=== PATIENT | female | born 1935 | race Caucasian/White ===

== ENCOUNTER 2017-08-20 10:48 | Emergency (ER) | payer MEDICARE ==
[2017-08-20 11:22] VITALS: BP 168/100
--- NOTE | 2017-08-20 11:23 | UC ---
Head Injury HPI - HPI Summary HPI Summary: Pt presents with daughter for slurred speech. Pt states that she is fine and doesn't want to be here. Daughter - Terrie - says that for the last 5 days she has noticed pt's speech being slurred at times. She tells me that about a month ago pt fell down an embankment and hit her head and bruised most of her body, did not seek treatment and did not experience LOC. She has "healed" from the fall and reports no residual pain or bruising. In regards to her recent slurred speech, both pt and daughter deny a more recent injury. When questioning the patient, she does admit that her speech has been "slower" than normal and that she is finding it more difficult to think of the correct word to say. She also mentions that she has felt "unsteady" on her feet. Pt states that she is "allergic to doctors" and thus never goes for routine follow ups or seeks medical care. She denies recent illness, dizziness, headache, vision changes, numbness, tingling, SOB, chest pain, abdominal pain, N/V/D/C, general pain, dysuria, hematuria, or urinary frequency. - History Of Current Complaint Hx Obtained From: Patient, Family/Slots Manager Onset/Duration: Gradual Onset, Lasting Days <Tej Nichols - Last Filed: 08/20/17 17:21> <Sultana Andrews - Last Filed: 08/21/17 20:29> - History Of Current Complaint Chief Complaint: UCGeneralIllness Stated Complaint: SLURRED SPEECH - Allergies/Home Medications Allergies/Adverse Reactions: Allergies Allergy/AdvReac Type Severity Reaction Status Date / Time No Known Allergies Allergy Verified 08/20/17 10:57 Home Medications: Home Medications Aspirin TAB* [Aspirin 325 MG TAB*] 325 mg PO DAILY 08/20/17 [History Confirmed 08/20/17] Vitamin E CAP* 200 mg PO DAILY 08/20/17 [History Confirmed 08/20/17] PMH/Surg Hx/FS Hx/Imm Hx Previously Healthy: Yes Cardiovascular History: Hypertension - Surgical History Surgical History: Yes Surgery Procedure, Year, and Place: hysto, cyst removal from left grion - Social History Alcohol Use: None Substance Use Type: None Smoking Status (MU): Light Every Day Tobacco Smoker Type: Cigarettes <Tej Nichols - Last Filed: 08/20/17 17:21> Review of Systems Constitutional: Negative Skin: Negative Eyes: Negative ENT: Negative Respiratory: Negative Cardiovascular: Negative Gastrointestinal: Negative Genitourinary: Negative Motor: Negative Neurovascular: Negative Musculoskeletal: Negative Neurological: Weakness, Other - Slurred speech. Psychological: Negative All Other Systems Reviewed And Are Negative: Yes <Tej Nichols - Last Filed: 08/20/17 17:21> Physical Exam Triage Information Reviewed: Yes Appearance: Well-Appearing, No Pain Distress, Well-Nourished Vital Signs: Initial Vital Signs Temp 98.6 F 08/20/17 10:59 Pulse 91 08/20/17 10:59 Resp 18 08/20/17 10:59 BP 185/109 08/20/17 10:59 Pulse Ox 100 08/20/17 10:59 Vital Signs Reviewed: Yes Eyes: Positive: Conjunctiva Clear, Other: - EOMI. PERRLA. No nystagmus. Visual melton intact.. Negative: Conjunctiva Inflamed, Discharge ENT: Positive: Hearing grossly normal, Pharynx normal, TMs normal, Uvula midline. Negative: Pharyngeal erythema, Nasal congestion, Nasal drainage, TM bulging, TM dull, TM red, Tonsillar swelling, Tonsillar exudate, Sinus tenderness Neck: Positive: Supple, No Lymphadenopathy, Other: - FROM. NTTP. Respiratory: Positive: Chest non-tender, No respiratory distress, No accessory muscle use, Decreased breath sounds - Throughout Cardiovascular: Positive: RRR, No Murmur, Pulses Normal Abdomen Description: Positive: Nontender, No Organomegaly, Soft. Negative: CVA Tenderness (R), CVA Tenderness (L), Distended, Guarding Bowel Sounds: Positive: Present Musculoskeletal: Positive: Strength Intact, ROM Intact, No Edema Neurological: Positive: Alert, Muscle Tone Normal, Other: - A&Ox3. 3 word recall , remote, recent memory, ability to follow 2-step directions, and attention intact. CN II XII grossly intact. Motor: good muscle tone, strength 5/5 throughout. Rapid alternating movements & [id number] are intact. Sensory: sensations intact throughout. Reflexes: biceps, triceps, brachioradialis, knee, and ankle +2. Mildly slowed and slurred speech, but easily understood - daughter and pt both admit that this is not her baseline. No facial drooping. There is no motor drift in UEs or LEs.. Negative: Fatigued, Lethargic Psychological: Positive: Age Appropriate Behavior Skin: Negative: rashes <Tej Nichols - Last Filed: 08/20/17 17:21> Vital Signs: Initial Vital Signs Temp 98.6 F 08/20/17 10:59 Pulse 91 08/20/17 10:59 Resp 18 08/20/17 10:59 BP 185/109 08/20/17 10:59 Pulse Ox 100 08/20/17 10:59 <Sultana Andrews - Last Filed: 08/21/17 20:29> Diagnostics - EKG Cardiac Rate: NL Cardiac Rhythm: Sinus: Normal - 1102 Rate 87. No acute ST changes <Tej Nichols - Last Filed: 08/20/17 17:21> National Institutes Of Health - NIH Scale Level of Consciousness: Alert/Keenly Responsive Ask Patient the Month and His/Her Age: Both Correct Ask Pt to Open/Close Eyes and Associate Veterinarian/Release Non-Paretic Hand: Both Correctly Best Gaze (Only Horizontal Eye Movement): Normal Visual Field Testing: No Visual Loss Facial Paresis-Pt to Smile & Close Eyes or Grimace Symmetry: Normal/Symmetrical Motor Function - Right Arm: No Drift-Holds 10 Seconds Motor Function - Left Arm: No Drift-Holds 10 Seconds Motor Function - Right Leg: No Drift-Holds 10 Seconds Motor Function - Left Leg: No Drift-Holds 10 Seconds Limb Ataxia-Must be out of Proportion to Weakness Present: Absent Sensory (Use Pinprick to Test Arms/Legs/Trunk/Face): Normal Best Language (Describe Picture, Name Items): Some Loss Dysarthria (Read Several Words): Slurs Some Words Extinction and Inattention: No Abnormality Total Score: 2 <Tej Nichols - Last Filed: 08/20/17 17:21> Head Injury Course/Dx - Course Course Of Treatment: EKG - NSR no ST elevation or acute changes. Case discussed with Dr. Sultana Andrews. We both had a discussion with pt and daughter and advised them to seek a further workup in the ED regarding her slurred speech and fall. An ambulance was offered, but they declined and elected to go by private vehicle. The daughter will drive pt to [facility]. - Differential Dx/Diagnosis Differential Diagnosis/HQI/PQRI: Concussion Without LOC, Contusion, Hematoma, Intracranial Bleed, Skull Fracture, Other - CVA. TIA. Provider Diagnoses: Slurred Speech. Generalized weakness <Tej Nichols - Last Filed: 08/20/17 17:21> - Differential Dx/Diagnosis Differential Diagnosis/HQI/PQRI: Other <Sultana Andrews - Last Filed: 08/21/17 20:29> Discharge - Discharge Plan Discharge Disposition Comment: ED by private car - daughter driving <Tej Nichols - Last Filed: 08/20/17 17:21> <Sultana Andrews - Last Filed: 08/21/17 20:29> - Discharge Plan Condition: Stable Disposition: TRANS HIGHER LVL OF CARE FAC Referrals: No Primary Care Phys,NOPCP [Medical Doctor] - Additional Instructions: Provider that evaluated you today recommended that you go to the ED for further evaluation regarding your slurred speech and weakness. If you develop any changes or increased/worsening symptoms on the way - please call 911. Attestation Statement User Type: Provider <Sultana Andrews - Last Filed: 08/21/17 20:29>
--- NOTE | 2017-08-20 11:30 | UC ---
Progress - Progress Note Progress Note: Pt evaluated with AMIE Pt is an 82 yo female, extensive tobacco use. Progressive weight loss pt has not seen pcp in a long time. Pt with progressive balance difficulties x 1 -2months. Pt fell "down ravine" 1 month ago - did not seek medical care. Children noted last Thur pt with slurring of words. Pt notes her speech has been slower Children convinced her to come to ED today. Pt denies fever, chills no cp, sob, abd pain no n.v.d No stone, vision change I was present throughout AMIE exam REcommend pt go to ED - refusing EMS - okay for daughter to drive Pt with markedly elevated BP today. Pt states unusual for her differential included stroke, htn urgency, malignancy Daughter will drive pt agreement with plan Verbal report to Panchito Mars RN at ED - MD not available
== END 2017-08-20 11:38 | disposition short-term general hospital (02) ==
LOC: UCEAST 10:48
DX: R47.81 Slurred speech (principal); R53.1 Weakness; Z72.0 Tobacco use; Z91.81 History of falling; R63.4 Abnormal weight loss
CPT/HCPCS: 93005; 99202; G0463

== ENCOUNTER 2017-08-20 11:54 | Emergency (ER) | payer MEDICARE ==
[2017-08-20 13:15] LABS: Hematocrit 38 % (35-47); Hemoglobin 12.6 g/dl (12.0-16.0); Mean Corpuscular HGB Conc 33 g/dl (31-36); Mean Corpuscular Hemoglobin 29 pg (27-31); Mean Corpuscular Volume 87 fL (80-97); Mean Platelet Volume 9 um3 (7.4-10.4); Red Blood Count 4.38 10^6/ul (4.0-5.4); Red Cell Distribution Width 15 % (10.5-15); White Blood Count 8.6 10^3/ul (3.5-10.8)
[2017-08-20] MEDS ORDERED: Labetalol IV* 5 MG/ML 20 ML VIAL IV PUSH ONE (13:20)
[2017-08-20 13:32] LABS: Albumin 3.5 g/dL (3.2-5.2); Calcium 8.8 mg/dL (8.6-10.3); EGFR African American 42.8 (>60); EGFR Non-African American 33.2 (>60); Globulin 3.1 g/dL (2-4); Potassium 3.9 mmol/L (3.5-5.0); Total Bilirubin 0.5 mg/dL (0.2-1.0); Total Protein 6.6 g/dL (6.4-8.9); Troponin I 0.02 ng/mL (<0.04)
--- NOTE | 2017-08-20 14:15 | RAD ---
Indication: Stroke. CT of the brain was performed without IV contrast. Ventricular structures are midline. No midline shift is noted. The extraction spaces are unremarkable. There is no evidence of intracranial mass or hemorrhage. No other high or low density lesions are identified. Mastoid air cells and paranasal sinuses are otherwise unremarkable. IMPRESSION: No intracranial mass or hemorrhage is noted.
--- NOTE | 2017-08-20 14:40 | ED ---
Daniel Kim Benjamin, scribed for Nani Odonnell MD on 08/20/17 at 1319 . Altered Mental Status - HPI Summary HPI Summary: 82yo female brought into ED by her daughter who reports pt having high BP and mild dizziness. BP in room is 194/146. Per daughter, pt has been slurring speech since after having an argument with someone. Pt hasnt seen a doctor for 5 years. Pt herself does not have any complaints. Pt does not want to be here. - History Of Current Complaint Chief Complaint: EDHypertension Stated Complaint: SLURRED SPEECH/HIGH BP Time Seen by Provider: 08/20/17 13:01 Hx Obtained From: Patient, Family/Nocturnist - daughter Onset/Duration: Resolved Timing: Intermittent Severity Initially: Mild Severity Currently: None Aggravating Factor(s): Nothing Alleviating Factor(s): Nothing Associated Signs And Symptoms: Positive: Negative - Allergies/Home Medications Allergies/Adverse Reactions: Allergies Allergy/AdvReac Type Severity Reaction Status Date / Time No Known Allergies Allergy Verified 08/20/17 10:57 PMH/Surg Hx/FS Hx/Imm Hx Cardiovascular History: Reports: Hx Hypertension - Surgical History Surgery Procedure, Year, and Place: hysto, cyst removal from left grion Infectious Disease History: No Infectious Disease History: Denies: History Other Infectious Disease, Traveled Outside the [place] in Last 30 Days - Family History Known Family History: Positive: Hypertension - Social History Occupation: Retired Alcohol Use: None Substance Use Type: Reports: None Smoking Status (MU): Light Every Day Tobacco Smoker Type: Cigarettes Review of Systems Constitutional: Negative Eyes: Negative ENT: Negative Cardiovascular: Negative Respiratory: Negative Gastrointestinal: Negative Genitourinary: Negative Musculoskeletal: Negative Skin: Negative Neurological: Negative Psychological: Normal All Other Systems Reviewed And Are Negative: Yes Physical Exam - Summary Physical Exam Summary: VITAL SIGNS: Reviewed. GENERAL: Patient is a well-developed and nourished FEMALE who is lying comfortable in the stretcher. Patient is not in any acute respiratory distress. HEAD AND FACE: No signs of trauma. No ecchymosis, hematomas or skull depressions. No sinus tenderness. EYES: PERRLA, EOMI x 2, No injected conjunctiva, no nystagmus. EARS: Hearing grossly intact. Ear canals and tympanic membranes are within normal limits. MOUTH: Oropharynx within normal limits. NECK: Supple, trachea is midline, no adenopathy, no JVD, no carotid bruit, no c- spine tenderness, neck with full ROM. CHEST: Symmetric, no tenderness at palpation LUNGS: Clear to auscultation bilaterally. No wheezing or crackles. CVS: Regular rate and rhythm, S1 and S2 present, no murmurs or gallops appreciated. ABDOMEN: Soft, non-tender. No signs of distention. No rebound no guarding, and no masses palpated. Bowel sounds are normal. EXTREMITIES: FROM in all major joints, no edema, no cyanosis or clubbing. NEURO: Alert and oriented x 3. No acute neurological deficits. Speech is normal and follows commands. SKIN: Dry and warm Triage Information Reviewed: Yes Vital Signs On Initial Exam: Initial Vitals Temp Pulse Resp BP Pulse Ox 98.1 F 87 20 173/121 97 08/20/17 11:57 08/20/17 11:57 08/20/17 11:57 08/20/17 11:57 08/20/17 11:57 Vital Signs Reviewed: Yes - [place] Coma Scale Coma Scale Total: 15 Diagnostics - Vital Signs Vital Signs Temp Pulse Resp BP Pulse Ox 08/20/17 12:01 188/108 08/20/17 11:57 98.1 F 87 20 173/121 97 - Laboratory Result Diagrams: 08/20/17 13:06 08/20/17 13:06 Lab Statement: Any lab studies that have been ordered have been reviewed, and results considered in the medical decision making process. Re-Evaluation - Re-Evaluation First Eval Re-Evaluation Time: 14:36 Comment: Reviewed pt's CT, and lab results. Will discharge pt. Altered Mental Statu Course/Dx - Course Course Of Treatment: 82yo female brought into ED by her daughter who reports pt having high BP and mild dizziness. BP in room is 194/146. Per daughter, pt has been slurring speech since after having an argument with someone. Pt hasnt seen a doctor for 5 years. Pt herself does not have any complaints. Pt does not want to be here. Pt will be discharge with dx of HTN. Will rx norvasc. Advised pt to monitor her BP. - Diagnoses Discharge Diagnoses: Hypertension Discharge - Discharge Plan Condition: Stable Disposition: HOME Prescriptions: Amlodipine Besylate [Norvasc 5 mg tab] 5 mg PO DAILY #30 tab Patient Education Materials: Hypertension (ED) Referrals: Jessica BAGLEYPFina [Primary Care Provider] - Additional Instructions: Monitor your blood pressure at home. RETURN TO EMERGENCY DEPARTMENT FOR ANY NEW OR WORSENING SYMPTOMS The documentation as recorded by the Daniel coleman Benjamin accurately reflects the service I personally performed and the decisions made by me, Nani Odonnell MD.
[2017-08-20 14:43] VITALS: BP 137/80
== END 2017-08-20 14:48 | disposition home or self-care (01) ==
LOC: ED 11:54
DX: I10 Essential (primary) hypertension (principal); F17.210 Nicotine dependence, cigarettes, uncomplicated
CPT/HCPCS: 36415; 70450; 80053; 83605; 84484; 85025; 93005; 96374; 99282

== ENCOUNTER 2017-09-20 16:26 | Emergency (ER) | payer MEDICARE ==
[2017-09-20 19:00] LABS: Hematocrit 41 % (35-47); Hemoglobin 13.7 g/dl (12.0-16.0); Mean Corpuscular HGB Conc 34 g/dl (31-36); Mean Corpuscular Hemoglobin 29 pg (27-31); Mean Corpuscular Volume 86 fL (80-97); Mean Platelet Volume 8 um3 (7.4-10.4); Platelet Count 275 10^3/ul (150-450); Red Blood Count 4.73 10^6/ul (4.0-5.4); Red Cell Distribution Width 15 % (10.5-15); White Blood Count 9.1 10^3/ul (3.5-10.8)
[2017-09-20] MEDS ORDERED: Clindamycin 900 MG IVPREMIX(* 900 MG/50 ML SDV IV ONE (20:43)
--- NOTE | 2017-09-20 22:06 | RAD ---
HISTORY: Bilateral lower extremity edema and pain. TECHNIQUE: Multiple transverse and longitudinal ultrasound images were obtained of the veins of the bilateral lower extremities using grayscale, color Doppler, and spectral Doppler imaging with and without compression and with augmentation. FINDINGS: VEINS: The common femoral vein, deep femoral vein, femoral vein and popliteal vein are compressible throughout their course, with normal flow on color Doppler imaging and normal response to augmentation on spectral Doppler imaging. SOFT TISSUES: There is a mild degree of subcutaneous edema overlying the left lower leg. Incidentally noted is a narrowed left superficial femoral artery exhibiting a flow velocity up to 491 cm/s. IMPRESSION: 1. No sonographic evidence of deep vein thrombosis. 2. Appearance of subcutaneous edema overlying the left lower leg. 3. Incidentally noted is a narrowed left superficial femoral artery with a flow velocity measuring 491 cm/s. Please correlate to signs and symptoms of arterial insufficiency such as nighttime rest pain or claudication pain.
--- NOTE | 2017-09-20 22:41 | ED ---
Js Kim Gabriel, scribed for Darrion Ross on 09/20/17 at 2040 . Lower Extremity - HPI Summary HPI Summary: This patient is a 82 year old F presenting to [facility] accompanied by her family with a chief complaint of rash on bilateral LE since 3 days ago. The patient rates the pain 4/10 in severity. Patient reports itching, edema, and red scaly skin that flakes. The patient reports that she had a large number of cat scratches on the left leg recently and was given antibiotics from her PCP that cleared up her symptoms. Patient only has one kidney and takes ASA and vitamin E every day. - History of Current Complaint Chief Complaint: EDSoftTissueLowExtr Stated Complaint: LEFT LEG SWOLLEN Time Seen by Provider: 09/20/17 20:25 Hx Obtained From: Patient, Family/Property Technician Mechanism Of Injury: Other - none Onset/Duration: Still Present - 3 Severity Initially: Mild Severity Currently: Mild Pain Intensity: 4 Pain Scale Used: 0-10 Numeric Timing: Constant Location: Is Discrete @ - BLLE Associated Signs And Symptoms: Positive: Swelling, Redness, Other - flakey and scaly skin Able to Bear Weight: Yes - Allergies/Home Medications Allergies/Adverse Reactions: Allergies Allergy/AdvReac Type Severity Reaction Status Date / Time No Known Allergies Allergy Verified 08/20/17 10:57 PMH/Surg Hx/FS Hx/Imm Hx Endocrine/Hematology History: Denies: Hx Diabetes Cardiovascular History: Reports: Hx Hypertension GI History: Denies: Hx Cirrhosis History: Denies: Hx Benign Prostatic Hyperplasia - Surgical History Surgery Procedure, Year, and Place: hysto, cyst removal from left grion Infectious Disease History: No Infectious Disease History: Denies: History Other Infectious Disease, Traveled Outside the [place] in Last 30 Days - Family History Known Family History: Positive: Hypertension Negative: Diabetes - Social History Alcohol Use: None Hx Substance Use: No Substance Use Type: Reports: None Hx Tobacco Use: Yes Smoking Status (MU): Light Every Day Tobacco Smoker Type: Cigarettes Review of Systems Negative: Abdominal Pain Positive: Other - pain in BLLE Positive: Rash - BLLE that itches and flakes All Other Systems Reviewed And Are Negative: Yes Physical Exam - Summary Physical Exam Summary: Appearance: Well appearing, no pain distress Skin: warm, dry, reflects adequate perfusion Head/face: normal Eyes: EOMI, KEN ENT: normal Neck: supple, non-tender Respiratory: CTA, breath sounds present Cardiovascular: RRR, pulses symmetrical Abdomen: non-tender, soft Bowel: present Musculoskeletal: strength/ROM intact , tenderness in the left calf. There is a erythematous rash on both LE that is worse on the left. Edema in BLLE worse on the left. Neuro: normal, sensory motor intact, A&Ox3, no neurological deficits Triage Information Reviewed: Yes Vital Signs On Initial Exam: Initial Vitals Temp Pulse Resp BP Pulse Ox 99.1 F 97 20 163/105 98 09/20/17 16:31 09/20/17 16:31 09/20/17 16:31 09/20/17 16:31 09/20/17 16:31 Vital Signs Reviewed: Yes - [place] Coma Scale Coma Scale Total: 14 Diagnostics - Vital Signs Vital Signs Temp Pulse Resp BP Pulse Ox 09/20/17 16:31 99.1 F 97 20 163/105 98 - Laboratory Lab Results: Lab Results 09/20/17 09/20/17 09/20/17 Range/Units 18:50 18:50 18:50 WBC 9.1 (3.5-10.8) 10^3/ul RBC 4.73 (4.0-5.4) 10^6/ul Hgb 13.7 (12.0-16.0) g/dl Hct 41 (35-47) % MCV 86 (80-97) fL MCH 29 (27-31) pg MCHC 34 (31-36) g/dl RDW 15 (10.5-15) % Plt Count 275 (150-450) 10^3/ul MPV 8 (7.4-10.4) um3 Sodium 136 (133-145) mmol/L Potassium 3.8 (3.5-5.0) mmol/L Chloride 100 L (101-111) mmol/L Carbon Dioxide 28 (22-32) mmol/L Anion Gap 8 (2-11) mmol/L BUN 38 H (6-24) mg/dL Creatinine 1.51 H (0.51-0.95) mg/dL Est GFR ( Amer) 42.4 (>60) Est GFR (Non-Af Amer) 33.0 (>60) BUN/Creatinine Ratio 25.2 H (8-20) Glucose 103 H (70-100) mg/dL Calcium 9.3 (8.6-10.3) mg/dL Total Bilirubin 0.50 (0.2-1.0) mg/dL AST 11 L (13-39) U/L ALT 6 L (7-52) U/L Alkaline Phosphatase 111 H (34-104) U/L B-Natriuretic Peptide 284 H ( - 100) pg/mL Total Protein 7.5 (6.4-8.9) g/dL Albumin 3.9 (3.2-5.2) g/dL Globulin 3.6 (2-4) g/dL Albumin/Globulin Ratio 1.1 (1-3) Result Diagrams: 09/20/17 18:50 09/20/17 18:50 Lab Statement: Any lab studies that have been ordered have been reviewed, and results considered in the medical decision making process. - Additional Comments Diagnostic Additional Comments: Venous Doppler study reveals, per radiologist, 1. No sonographic evidence of deep vein thrombosis. 2. Appearance of subcutaneous edema overlying the left lower leg. 3. Incidentally noted is a narrowed left superficial femoral artery with a flow velocity measuring 491 cm/s. Please correlate to signs and symptoms of arterial insufficiency such as nighttime rest pain or claudication pain. ED physician has reviewed this radiology report. Lower Extremity Course/Dx - Course Assessment/Plan: This patient is a 82 year old F presenting to [facility] accompanied by her family with a chief complaint of rash on bilateral LE since 3 days. Patient reports itching, edema, and red scaly skin that flakes. Venous Doppler study reveals, per radiologist, 1. No sonographic evidence of deep vein thrombosis. 2. Appearance of subcutaneous edema overlying the left lower leg. 3. Incidentally noted is a narrowed left superficial femoral artery with a flow velocity. measuring 491 cm/s. Please correlate to signs and symptoms of arterial insufficiency such. as nighttime rest pain or claudication pain. Bloodwork was obtained. In the ED course the patient was given clindamycin. PATIENT IS REFUSING ADMISSION AND IN INSISTING SHE BE SENT HOME. We discussed patient care with Dr. De Los Santos and he agreed to follow up with the patient at his office in three days. He treat her PAD with vascular intervention. Patient will be discharged with prescription for Clindamycin and follow up from Dr. de los santos. The patient is agreeable with this plan. - Diagnoses Differential Diagnosis/HQI/PQRI: Positive: Cellulitis, DVT, Infection, Sprain, Tendonitis, Other - PAD Provider Diagnoses: Cellulitis of left leg, PAD (peripheral artery disease) - Physician Notifications Discussed Care Of Patient With: Nils De Los Santos Time Discussed With Above Provider: 21:50 Instructed by Provider To: Other - We discussed patient care with Dr. De Los Santos and he agreed to follow up with the patient at his office in three days. He treat her PAD with vascular intervention. Discharge - Discharge Plan Condition: Stable Disposition: HOME Prescriptions: Clindamycin Cap(NF) [Clindamycin Cap 300 mg Cap(NF)] 300 mg PO Q6H #40 cap Patient Education Materials: Clindamycin (By mouth), Cellulitis (ED), Peripheral Artery Disease (ED) Referrals: Fina Sol RN [Primary Care Provider] - 3 Days Nils De Los Santos MD [Medical Doctor] - 3 Days Additional Instructions: Follow up with Dr. De Los Santos in three days. RETURN TO THE EMERGENCY DEPARTMENT FOR CHANGING OR WORSENING SYMPTOMS. The documentation as recorded by the Js coleman Gabriel accurately reflects the service I personally performed and the decisions made by , Darrion Ross.
[2017-09-20 22:59] VITALS: BP 143/79
== END 2017-09-20 22:58 | disposition home or self-care (01) ==
LOC: ED 16:26
DX: L03.116 Cellulitis of left lower limb (principal); I73.9 Peripheral vascular disease, unspecified; R60.0 Localized edema; F17.210 Nicotine dependence, cigarettes, uncomplicated
CPT/HCPCS: 36415; 80053; 83880; 85027; 87040; 93970; 96365; 96366; 99283